=== PATIENT | female | born 1980 | race African-American/Black ===

== ENCOUNTER 2018-03-17 06:06 | Day surgery (SDC) | payer OTHER ==
[~2018-03-17 06:06] MED LIST: BUPIVACAINE-EPI 0.5%-1:200000 50 ML VIAL. ONE; CHOL500016 PO; FERR325T14 PO; FERRIC SUBSULFATE 8 ML SOL.W.APPL TP ONE; PROAIR RESPICL90 MCG IH
[2018-03-17] MEDS ORDERED: PROPOFOL 20 ML IV ONE (06:24)
[2018-03-17] MEDS ORDERED: fentaNYL PF VIAL 100 MCG/2 ML VIAL ONE (06:24)
[2018-03-17] MEDS ORDERED: MIDAZOLAM HCL/PF 2 MG/2 ML VIAL. ONE (06:25)
[2018-03-17] MEDS ORDERED: ONDANSETRON PF 4 MG/2 ML VIAL. ONE (06:26)
[2018-03-17] MEDS ORDERED: DEXAMETHASONE SOD PHOS 20 MG/5 ML VIAL. ONE (06:26)
[2018-03-17] MEDS ORDERED: LIDOCAINE 1% PF 2 ML VIAL. ID PRN (07:00)
[2018-03-17] MEDS ORDERED: MORPHINE SULFATE 2 MG/ML VIAL. IV PRN (07:00)
[2018-03-17] MEDS ORDERED: fentaNYL PF VIAL 100 MCG/2 ML VIAL IV PRN ×2 (07:00)
[2018-03-17] MEDS ORDERED: HYDROmorphone 2 MG/ML VIAL IV PRN (07:00)
[2018-03-17] MEDS ORDERED: PROCHLORPERAZINE 10 MG/2 ML VIAL. IV PRN (07:00)
[2018-03-17] MEDS ORDERED: ONDANSETRON PF 4 MG/2 ML VIAL. IV PRN (07:00)
[2018-03-17] MEDS ORDERED: IV RINGERS,LACTATED 1000ML 1,000 ML IV SCH (07:00)
[2018-03-17 07:23] LABS: U PREG PATIENT NEGATIVE (NEG)
--- NOTE | 2018-03-17 08:49 | PDOC ---
BRIEF OPERATIVE NOTE Date: Mar 17, 2018 Pre-Op Diagnosis Cervical dysplasia Post-Op Diagnosis Same Procedure Performed ECC and LEEP cone Surgeon Yaw Anesthesia Type: General Blood Loss 5cc Specimens Obtained ECC and LEEP Complications None TOLU CARRION MD Mar 17, 2018 08:49
[2018-03-17] MEDS ORDERED: ALBUTEROL SULFATE 2.5 MG/3 ML NEBU. ONE (09:00)
[2018-03-17] MEDS ORDERED: ALBUTEROL SULFATE 2.5 MG/3 ML NEBU. NEB ONE (09:15)
[2018-03-17 10:15] VITALS: BP 129/76
--- NOTE | 2018-03-21 11:11 | PATHOLOGY ---
[facility] Accession Number: [id number] . 01 Material submitted: . PART A: ENDOCERVICAL CURETTINGS PART B: LEEP CONE . 01 Clinical history: . Cervical dysplasia . 02 Diagnosis: A. Endocervical curettings: - Minute fragment of benign endocervical mucosa, inflamed. - Isolated benign squamous cells. . B. LEEP cone: - Low-grade squamous intraepithelial lesion (ANSLEY-I, mild dysplasia). - Acute and chronic cervicitis. - Margins uninvolved by dysplasia. (MAP:[facility] 03/20/2018) [facility]03/20/2018 . 02 Electronically signed: . Miles Odell MD, Pathologist NPI- [id number] . 01 Gross description: . A. The specimen is received in formalin, labeled "Christmon, Katja and endocervical curettings", is a 0.3 centimeter in greatest dimension ricketts brown material. The content of the container is filtered into a biopsy bag and entirely submitted in A1. The specimen may not survive processing. . B. The specimen is received in formalin, labeled "Christmon, Katja and LEEP cone", are two segments of ricketts, cauterized, soft tissues 1.5 x 1.2 x 0.6 cm and 0.7 x 0.5 x 0.4 cm. The largest fragment is an oriented and shows a rosado-pink ectocervix. The ectocervix is inked blue and the endocervix black. Both the segments are serially section and the specimen is entirely submitted in B1-B3. (B1 and B2 = largest fragment and B3 = remaining fragment) ([facility]; 03/17/2018) [facility]S . 02 Pathologist provided ICD-10: N87.0, N72 . 02 CPT . 471112, 903216 Specimen Comment: A courtesy copy of this report has been sent to Specimen Comment: [phone], . Specimen Comment: Report sent to / [facility] Performed at: [address], [place], [place] [id number] MD Tomas Marshall MD Phone: [phone] Performed at: [address] [id number] MD Meme Rivera MD Phone: [phone]
--- NOTE | 2018-04-05 22:46 | OP ---
DATE OF SURGERY: 03/17/2018 PREOPERATIVE DIAGNOSIS: Cervical dysplasia. POSTOPERATIVE DIAGNOSIS: Cervical dysplasia. PROCEDURE: LEEP cone biopsy with ECC. SURGEON: Kayode Tidwell M.D. CYCLE CONSULTANT: None. ANESTHESIA: General. SPECIMENS: ECC and LEEP cone. COMPLICATIONS: None. CONDITION: Stable. DESCRIPTION OF PROCEDURE: Risks, benefits, indications and alternatives discussed in detail with the patient. The patient was brought to the OR theater and placed in dorsal lithotomy position in Imer stirrups. With adequate general anesthesia, the patient was prepped and draped in the usual sterile manner. A bivalve speculum was placed. Cervix was identified and put in the center of the field. A large loop LEEP was then performed without any difficulties. ECC had been performed. After that the base of the LEEP specimen was cauterized. Good hemostasis was assured. The base of the LEEP also was saturated with Monsel solution for additional hemostasis. Procedure was terminated. Vaginal vault was wiped clean of any blood or tissue. The bivalve speculum had been removed. Sponge, needle and instrument counts were correct x 2 per nursing staff. The patient went to postop anesthesia recovery in stable condition. KAYODE TIDWELL MD DR: NOLAN/mateo JOB#: [id number] / [id number]
== END 2018-03-17 10:27 | disposition home or self-care (01) ==
LOC: SURG 06:06
PROVIDERS: ATTEND Specialist
DX: N87.0 Mild cervical dysplasia (principal); N72 Inflammatory disease of cervix uteri; J45.909 Unspecified asthma, uncomplicated; Z98.890 Other specified postprocedural states; Z79.899 Other long term (current) drug therapy
CPT/HCPCS: 57522; 81025; 88305; 88307; J1100; J2250; J2405; J2704; J3010; J7613